=== PATIENT | male | born 1990 | race Caucasian/White ===

== ENCOUNTER 2020-09-29 22:07 | Emergency (ER) | payer BC ==
[~2020-09-29] VITALS: Ht 185.4 cm; Wt 134.0 kg
[2020-09-29 22:12] VITALS: BP 133/98
[2020-09-30] MEDS ORDERED: HYDROcodone/acetaminophen 5mg/325mg tablet PO ONE (00:05)
[2020-09-30] MEDS ORDERED: ibuprofen tablet 400 MG TABLET PO ONE (00:05)
[2020-09-30] MEDS ORDERED: IBUP-1986 PO (00:12)
== END 2020-09-30 00:32 | disposition home or self-care (01) ==
LOC: ER 22:08
DX: S82.831A Other fracture of upper and lower end of right fibula, initial encounter for closed fracture (principal); F12.90 Cannabis use, unspecified, uncomplicated; Z72.89 Other problems related to lifestyle; Z79.899 Other long term (current) drug therapy; W17.89XA Other fall from one level to another, initial encounter; Y93.31 Activity, mountain climbing, rock climbing and wall climbing; Y92.414 Local residential or business street as the place of occurrence of the external cause; Y99.8 Other external cause status
CPT/HCPCS: 73610; 99283